=== PATIENT | female | born 1970 | race Hispanic/Latino ===

== ENCOUNTER 2019-11-23 23:02 | Emergency (ER) | payer SELFPAY ==
[2019-11-24] MEDS ORDERED: Ibuprofen 800 MG TAB ONE (00:04)
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
== END 2019-11-24 00:10 | disposition home or self-care (01) ==
LOC: BURERS 23:02
DX: S06.0X1A Concussion with loss of consciousness of 30 minutes or less, initial encounter (principal); Y04.8XXA Assault by other bodily force, initial encounter
CPT/HCPCS: 70450; 72125